=== PATIENT | male | born 1985 | race African-American/Black ===

== ENCOUNTER → 2019-03-04 06:41 | Outpatient (CLI) | payer OTHER, SELFPAY ==
--- NOTE | 2019-03-04 | DI.MRI.S_ITS ---
PROCEDURE: MR ANKLE RT WO CON INDICATIONS: Sprain of unspecified ligament of right ankle, ini TECHNIQUE: Noncontrast sagittal T1 spin echo and T2 fast spin echo with fat saturation, axial proton density fast spin echo and T2 fast spin echo with fat saturation, coronal T1 spin echo and T2 fast spin echo with fat saturation through the ankle/hindfoot. COMPARISON: None. FINDINGS: Image quality: Excellent. Bones and joints: No bone marrow contusions or fractures. No hindfoot coalitions. No osteochondral injuries of the talar dome. No pathologic joint effusions. Medial structures: The posterior tibialis, flexor digitorum longus, and flexor hallucis longus tendons are intact. Minimal fluid adjacent to the posterior tibialis tendon The posterior tibial neurovascular bundle appears normal within the tarsal tunnel, without extrinsic mass effect. Minimal edema seen in the region of the deep fibers of the deltoid ligament complex however it otherwise appears grossly intact and recommend clinical correlation as this finding indeterminate The spring ligament components (superomedial calcaneonavicular, medioplantar oblique calcaneonavicular, and inferoplantar longitudinal ligaments) are intact. Lateral structures: The anterior talofibular, calcaneofibular, and posterior talofibular ligaments appear grossly intact. However, there is questionable thickening of the posterior talofibular ligament raising the possibility of isolated mild sprain however statistically this is uncommon. Nonetheless recommend clinical correlation More superiorly, the anterior and posterior tibiofibular ligaments appear intact, as is the intermalleolar ligament. The tibiofibular syndesmosis is normal in width at 2 mm or less. There is mild fluid in this area however raising possibility of minimal sprain. The peroneus longus and brevis tendons demonstrate normal location and morphology. Adjacent bony peroneal tubercle and retrotrochlear prominence are normal in size. The sinus tarsi demonstrates normal fatty signal, without edema, fibrosis, or cyst formation. Visualized sinus tarsi components (cervical ligament, interosseous talocalcaneal ligament, roots of the inferior extensor retinaculum) appear normal. The calcaneonavicular and calcaneocuboid components of the bifurcate ligament appear intact. The dorsal calcaneocuboid ligament appears intact. Anterior structures: The tibialis anterior, extensor hallucis longus, and extensor digitorum longus tendons appear intact. The dorsal talonavicular ligament appears intact. Posterior and plantar structures: Achilles tendon is intact. Medial and lateral bands of the plantar fascia are of normal thickness. No abductor digiti quinti muscle atrophy to suggest Mendoza neuropathy. IMPRESSION: Overall, no definite internal derangement. Mild edema seen in the region of the deep fibers of the deltoid ligament complex, as well as the posterior talofibular ligament potentially representing very low-grade sprain in these areas as discussed in detail above. Mild fluid seen in the region of the distal tibiofibular syndesmosis (potentially indicating minimal sprain) which otherwise appears grossly intact. Recommend clinical correlation with point tenderness with all of these findings as they are technically indeterminate Mild posterior tibialis tenosynovitis. Dictated by: Richar Pérez M.D. on 03/04/2019 at 9:01 Approved by: Richar Pérez M.D. on 03/04/2019 at 9:08
== END ==
PROVIDERS: Visit Provider Orthopaedic Surgery
DX: S93.401A Sprain of unspecified ligament of right ankle, initial encounter (principal); M79.671 Pain in right foot; M65.871 Other synovitis and tenosynovitis, right ankle and foot
CPT/HCPCS: 73721